=== PATIENT | female | born 1955 | race Caucasian/White ===

== ENCOUNTER 2021-08-21 14:50 | Inpatient (IN) ==
[2021-08-21] MEDS ORDERED: Albuterol 2.5 MG/3 ML NEBULIZER IH PRN (17:11)
[2021-08-21] MEDS ORDERED: Melatonin 3 MG TABLET PO PRN (17:12)
[2021-08-21] MEDS ORDERED: Naloxone 0.4 MG/ML INJ IVP PRN (17:12)
[2021-08-21] MEDS ORDERED: Ondansetron 4 MG/2 ML VIAL IVP PRN (17:12)
[2021-08-21] MEDS ORDERED: Acetaminophen 325 MG TABLET PO PRN (17:12)
[2021-08-21] MEDS ORDERED: Isovue-370 500 ML BOTTLE IVP ONE (17:35)
[2021-08-21] MEDS: *HR* Heparin 5,000 UNIT/ML VIAL SQ SCH (18:24)
[2021-08-21 18:27] LABS: BUN/Creatinine Ratio 14 (6-26); Blood Urea Nitrogen 10 mg/dL (8-23); Calcium 9.1 mg/dL (8.6-10.3); Carbon Dioxide 25 mEq/L (23-29); Chloride 101 mEq/L (98-107); Glucose 138 mg/dL (70-105); Osmolality,Calculated 283 (280-300); Potassium 4.1 mEq/L (3.5-5.1); Sodium 136 mEq/L (136-145); eGFR For African Americans > 60 (> 60); eGFR For Non-African Americans > 60 (> 60)
[2021-08-21 18:31] LABS: Troponin I 0.06 ng/mL (< 0.04)
[2021-08-21] MEDS ORDERED: Aspirin 81 MG TAB.CHEW PO ONE (18:38)
[2021-08-21 19:08] LABS: Basophils % 0.2 %; Hematocrit 41.2 % (35.3-44.9); Hemoglobin 13.6 g/dL (11.5-15.4); Immature Granulocytes % 0.7 % (0-4); Lymphocytes # 0.9 K/mcL (0.6-4.6); Lymphocytes % 9.3 %; Mean Corpuscular Hemoglobin 28.5 pg (28.0-33.3); Mean Corpuscular Volume 86.2 fL (83.0-100.0); Mean Platelet Volume 11.3 fL (9.4-12.4); Monocytes # 0.4 K/mcL (0.0-1.3); Monocytes % 3.9 %; Neutrophils # 8.3 K/mcL (1.6-8.9); Platelet Count 244 K/mcL (140-400); Red Blood Count 4.78 M/mcL (3.82-4.97); Red Cell Distribution Width 13.8 % (11.5-14.5); Segmented Neutrophils % 85.9 %; White Blood Count 9.7 K/mcL (4.3-11.1)
[2021-08-21] MEDS: Albuterol 2.5 MG/3 ML NEBULIZER IH SCH ×2 (19:22→23:59)
[2021-08-21 19:28] LABS: Chol/HDL Ratio 4.8 (0-4.9)
[2021-08-22] MEDS: MethylPREDNISolone 40 MG/ML VIAL IVP SCH ×4 (00:02→23:23)
[2021-08-22] MEDS: Albuterol 2.5 MG/3 ML NEBULIZER IH SCH ×3 (03:43→11:41)
[2021-08-22 05:24] LABS: Basophils % 0.3 %; Immature Granulocytes % 0.3 % (0-4); Lymphocytes # 1.2 K/mcL (0.6-4.6); Lymphocytes % 10.4 %; Mean Corpuscular Hemoglobin 28.6 pg (28.0-33.3); Mean Corpuscular Volume 86.6 fL (83.0-100.0); Mean Platelet Volume 11.2 fL (9.4-12.4); Monocytes # 0.6 K/mcL (0.0-1.3); Monocytes % 5.1 %; Neutrophils # 9.6 K/mcL (1.6-8.9); Platelet Count 272 K/mcL (140-400); Red Blood Count 5.31 M/mcL (3.82-4.97); Segmented Neutrophils % 83.9 %; White Blood Count 11.5 K/mcL (4.3-11.1)
[2021-08-22 05:25] LABS: Hemoglobin 15.2 g/dL (11.5-15.4)
[2021-08-22 05:38] LABS: Alanine Aminotransferase 9 Units/L (7-52); Albumin/Globulin Ratio 1.2 (1.1-2.2); Alkaline Phosphatase 97 Units/L (34-104); Aspartate Amino Transferase 19 Units/L (13-39); BUN/Creatinine Ratio 18 (6-26); Bilirubin,Total 0.4 mg/dL (0.3-1.0); Blood Urea Nitrogen 12 mg/dL (8-23); Calcium 9.5 mg/dL (8.6-10.3); Carbon Dioxide 25 mEq/L (23-29); Chloride 101 mEq/L (98-107); Globulin 3.3 g/dL (2.4-3.5); Glucose 106 mg/dL (70-105); Osmolality,Calculated 282 (280-300); Potassium 4.3 mEq/L (3.5-5.1); Sodium 136 mEq/L (136-145); Total Protein 7.3 g/dL (6.4-8.9); eGFR For African Americans > 60 (> 60); eGFR For Non-African Americans > 60 (> 60)
[2021-08-22] MEDS: *HR* Heparin 5,000 UNIT/ML VIAL SQ SCH (05:40)
[2021-08-22] MEDS: levoFLOXacin 750 MG TABLET PO SCH (08:36)
[2021-08-22] MEDS: Aspirin 81 MG TAB.CHEW PO SCH (08:36)
[2021-08-22] MEDS ORDERED: *HR* LORazepam 0.5 MG TABLET PO ONE (09:28)
[2021-08-22] MEDS ORDERED: *HR* Metoprolol 5 MG/5 ML VIAL IVP ONE ×2 (09:48→11:24)
[2021-08-22 13:14] LABS: Estimated Average Glucose 114 mg/dl; Hemoglobin A1C 5.6 %
[2021-08-22] MEDS ORDERED: *HR* Heparin 5,000 UNIT/ML VIAL IVP PRN ×2 (14:13)
[2021-08-22] MEDS ORDERED: *HR* Heparin 5,000 UNIT/ML VIAL IVP ONE (14:13)
[2021-08-22 15:18] LABS: Hemoglobin 16.1 g/dL (11.5-15.4); Mean Corpuscular HGB Conc 32.9 g/dL (31.6-35.5); Mean Corpuscular Hemoglobin 28.7 pg (28.0-33.3); Mean Corpuscular Volume 87.3 fL (83.0-100.0); Mean Platelet Volume 11.5 fL (9.4-12.4); Platelet Count 328 K/mcL (140-400); Red Blood Count 5.61 M/mcL (3.82-4.97); Red Cell Distribution Width 13.9 % (11.5-14.5); White Blood Count 13.5 K/mcL (4.3-11.1)
[2021-08-22 15:25] LABS: Adenovirus Not Detected (Not Detect); Bordetella Pertussis Not Detected (Not Detect); Chlamydophila pneumoniae Not Detected (Not Detect); Coronavirus 229E Not Detected (Not Detect); Coronavirus HKU1 Not Detected (Not Detect); Coronavirus NL63 Not Detected (Not Detect); Coronavirus OC43 Not Detected (Not Detect); Human Metapneumovirus Not Detected (Not Detect); Human Rhinovirus/Enterovirus Not Detected (Not Detect); Influenza A Subtype 2009 H1 Not Detected (Not Detect); Influenza B Not Detected (Not Detect); Mycoplasma pneumoniae Not Detected (Not Detect); Parainfluenza Virus 1 Not Detected (Not Detect); Parainfluenza Virus 2 Not Detected (Not Detect); Parainfluenza Virus 3 Not Detected (Not Detect); Parainfluenza Virus 4 Not Detected (Not Detect); Respiratory Syncytial Virus Not Detected (Not Detect); SARS-CoV-2 Not Detected (Not Detect)
[2021-08-22 15:28] LABS: Heparin anti-factor XA UFH < 0.04 IU/mL (0.30-0.70)
[2021-08-22 15:29] LABS: INR 1.1; Prothrombin Time 11.8 Seconds (9.4-12.1)
[2021-08-22] MEDS: Ipratropium Neb 0.5 MG NEBULIZER IH SCH ×2 (15:33→20:18)
[2021-08-22] MEDS: Heparin 25,000 UNIT/250 ML 25,000 UNIT/250 ML IV.SOLN IVC SCH (17:00)
[2021-08-23] MEDS: Ipratropium Neb 0.5 MG NEBULIZER IH SCH ×7 (00:11→23:16)
[2021-08-23 00:38] LABS: Basophils % 0.3 %; Eosinophils % 0.2 %; Hematocrit 47.5 % (35.3-44.9); Hemoglobin 15.7 g/dL (11.5-15.4); Immature Granulocytes % 0.5 % (0-4); Lymphocytes # 2.5 K/mcL (0.6-4.6); Lymphocytes % 16.4 %; Mean Corpuscular HGB Conc 33.1 g/dL (31.6-35.5); Mean Corpuscular Hemoglobin 28.9 pg (28.0-33.3); Mean Corpuscular Volume 87.3 fL (83.0-100.0); Mean Platelet Volume 11.5 fL (9.4-12.4); Monocytes % 6.7 %; Neutrophils # 11.4 K/mcL (1.6-8.9); Platelet Count 299 K/mcL (140-400); Red Blood Count 5.44 M/mcL (3.82-4.97); Red Cell Distribution Width 13.9 % (11.5-14.5); Segmented Neutrophils % 75.9 %
[2021-08-23 00:59] LABS: Alanine Aminotransferase 10 Units/L (7-52); Albumin 3.9 g/dL (3.5-5.7); Albumin/Globulin Ratio 1.2 (1.1-2.2); Alkaline Phosphatase 90 Units/L (34-104); Aspartate Amino Transferase 20 Units/L (13-39); BUN/Creatinine Ratio 31 (6-26); Bilirubin,Total 0.3 mg/dL (0.3-1.0); Blood Urea Nitrogen 22 mg/dL (8-23); Calcium 9.6 mg/dL (8.6-10.3); Carbon Dioxide 25 mEq/L (23-29); Chloride 101 mEq/L (98-107); Globulin 3.2 g/dL (2.4-3.5); Glucose 113 mg/dL (70-105); Osmolality,Calculated 284 (280-300); Potassium 4.5 mEq/L (3.5-5.1); Sodium 135 mEq/L (136-145); Total Protein 7.1 g/dL (6.4-8.9); eGFR For African Americans > 60 (> 60); eGFR For Non-African Americans > 60 (> 60)
[2021-08-23] MEDS ORDERED: *HR* LORazepam 2 MG/ML VIAL IVP ONE (01:11)
[2021-08-23] MEDS: levoFLOXacin 750 MG TABLET PO SCH (08:42)
[2021-08-23] MEDS: MethylPREDNISolone 40 MG/ML VIAL IVP SCH ×2 (08:42→18:30)
[2021-08-23] MEDS: Aspirin 81 MG TAB.CHEW PO SCH (08:43)
[2021-08-23] MEDS ORDERED: *HR* Metoprolol 5 MG/5 ML VIAL IVP ONE (22:30)
[2021-08-24] MEDS: MethylPREDNISolone 40 MG/ML VIAL IVP SCH ×2 (00:14→08:34)
[2021-08-24] MEDS ORDERED: *HR* Metoprolol 5 MG/5 ML VIAL IVP ONE (02:11)
[2021-08-24] MEDS: Heparin 25,000 UNIT/250 ML 25,000 UNIT/250 ML IV.SOLN IVC SCH ×2 (02:30→15:18)
[2021-08-24 03:11] LABS: Basophils # 0.1 K/mcL (0.0-0.2); Basophils % 0.6 %; Eosinophils # 0.2 K/mcL (0.0-0.6); Eosinophils % 1.9 %; Hemoglobin 14.8 g/dL (11.5-15.4); Immature Granulocytes % 0.4 % (0-4); Lymphocytes # 2.3 K/mcL (0.6-4.6); Lymphocytes % 20.5 %; Mean Corpuscular HGB Conc 32.9 g/dL (31.6-35.5); Mean Corpuscular Hemoglobin 28.1 pg (28.0-33.3); Mean Corpuscular Volume 85.6 fL (83.0-100.0); Mean Platelet Volume 11.6 fL (9.4-12.4); Monocytes # 0.4 K/mcL (0.0-1.3); Monocytes % 3.7 %; Platelet Count 249 K/mcL (140-400); Red Blood Count 5.26 M/mcL (3.82-4.97); Red Cell Distribution Width 13.6 % (11.5-14.5); Segmented Neutrophils % 72.9 %; White Blood Count 11.2 K/mcL (4.3-11.1)
[2021-08-24 03:13] LABS: Neutrophils # 8.2 K/mcL (1.6-8.9)
[2021-08-24 03:30] LABS: Alanine Aminotransferase 17 Units/L (7-52); Albumin 3.6 g/dL (3.5-5.7); Albumin/Globulin Ratio 1.2 (1.1-2.2); Alkaline Phosphatase 78 Units/L (34-104); Aspartate Amino Transferase 24 Units/L (13-39); BUN/Creatinine Ratio 33 (6-26); Bilirubin,Total 0.3 mg/dL (0.3-1.0); Blood Urea Nitrogen 26 mg/dL (8-23); Calcium 9.4 mg/dL (8.6-10.3); Carbon Dioxide 25 mEq/L (23-29); Chloride 100 mEq/L (98-107); Glucose 122 mg/dL (70-105); Osmolality,Calculated 280 (280-300); Potassium 4.4 mEq/L (3.5-5.1); Sodium 132 mEq/L (136-145); Total Protein 6.6 g/dL (6.4-8.9); eGFR For African Americans > 60 (> 60); eGFR For Non-African Americans > 60 (> 60)
[2021-08-24] MEDS: Ipratropium Neb 0.5 MG NEBULIZER IH SCH ×4 (03:55→15:22)
[2021-08-24] MEDS ORDERED: *HR* Labetalol 20 MG/4 ML SYRINGE IVP ONE (04:15)
[2021-08-24] MEDS: levoFLOXacin 750 MG TABLET PO SCH (08:35)
[2021-08-24] MEDS: Aspirin 81 MG TAB.CHEW PO SCH (08:35)
[2021-08-24 12:27] VITALS: BP 119/77; PULSE 65; TEMP 98; O2SAT 93
== END 2021-08-24 15:24 | disposition home or self-care (01) | DRG 190 ==
LOC: 3BNU → SUATTDRO 08-22 14:06
PROVIDERS: ADMIT Internal Medicine; ATTEND Registered Nurse